=== PATIENT | female | born 1995 | race Caucasian/White ===

== ENCOUNTER 2023-07-24 12:44 | Outpatient (OUT) | payer OTHER, SELFPAY ==
--- NOTE | 2023-07-24 12:58 | US_ITS ---
[address] [address] Patient Name: MORAIMA DUNN MRN: [id number] date: 1995 Sex: F Assigned Patient Location: Current Patient Location: US Accession/Order Number: [id number] Exam Date: 07/24/2023 13:00 Report Date: 07/24/2023 13:48 At the request of: JUDIT REICH Procedure: US OB growth EXAMINATION: US OB growth HISTORY: Large For Dates P08.1 COMPARISON: No relevant comparison available. FINDINGS: Heart Rate: 131.1 bpm Amniotic Fluid Volume: 15.8 cm Number: 1.0 Position: Cephalic presentation, longitudinal lie Maximum Vertical Pocket: 3.6 cm cm 4.3 cm cm 2.8 cm cm 5.1 cm cm BIOMETRY: BPD: 8.9 cm cm; 36 weeks 0 days; 36% HC: 33.0 cmcm; 37 weeks 4 days , 35% AC: 32.4 cm cm; 36 weeks 2 days, 41% FL: 6.8 cm cm; 34 weeks 5 days; 4.6 % % EFW: 2832.5 grams, 6 lbs. 4 oz., 28% FL/AC: 20.8 FL/BPD: 75.8 HC/AC: 1.0 GESTATIONAL AGE: Age by EDC: 37 weeks 1 days CELSO by EDC: 08/13/2023 Age by US: 36 weeks 1 day CELSO by US: 08/20/2023 Possible nuchal cord. Suboptimal visualization of the head which is low in the maternal pelvis US/US OB growth IMPRESSION: Possible nuchal cord Femur length at the 5th percentile Otherwise normal interval growth Electronically authenticated by: AUTUMN STARK Date: 07/24/2023 13:48
== END 2023-07-24 12:45 | disposition home or self-care (01) ==
LOC: US 12:52
PROVIDERS: Visit Provider Midwife
DX: O26.843 Uterine size-date discrepancy, third trimester (principal); Z3A.36 36 weeks gestation of pregnancy
CPT/HCPCS: 76816

== ENCOUNTER 2023-08-06 19:15 | Inpatient (IN) | payer OTHER, SELFPAY ==
[2023-08-06] VITALS (12 sets, daily range): BP systolic 113–151; BP diastolic 56–89; PULSE 70–83; RESP 16–18; TEMP 36.6
--- OUTSIDE RECORDS SUMMARY | 2023-08-06 19:21 | XMS_ITS | CCD ---
Author Name Unknown Address [address] [place] [address] Organization [facility] Care Team Providers Care Specialized Developer Name Role Phone Hussain Olivas Primary Care Unavailable Hussain Olivas Attending Unavailable FLORO, JUDIT L Attending Unavailable FLORO, JUDIT L Attending Unavailable FLORO, JUDIT L Attending Unavailable FLORO, JUDIT L Attending Unavailable FLORO, JUDIT L Attending Unavailable FLORO, JUDIT L Referring Unavailable FLORO, JUDIT L Attending Unavailable FLORO, JUDIT L Referring Unavailable FLORO, JUDIT L Attending Unavailable Results Test Name Value Interpretation Reference Range Facil ity US OB FOLLOW UP TRANSABDOMIN AL APPROACHon 07-31-2023 US OB FOLLOW UP TRANSABDOMINAL APPROACH HISTORY: Growth assessment COMPARISON: 06/05/2023. TECHNIQUE: Sonography of the pelvis was performed by transabdominal technique. Images were obtained and stored in a permanent archive. RESULT: Gestation: Single present. Position: Cephalic Placenta: Location: Anterior Grade: 1 Previa: absent Cervix: Not well visualized. Cardiac activity: 143 bpm BPD: 9.4 cm HC: 33.8 cm AC: 34.1 cm FL: 6.9 cm Amniotic fluid: 16.6 cm, 70.5 percentile Estimated weight (EFW): 3238 g (7 pounds 2 ounces), 47.6 percentile Estimated gestational age: 37 weeks 4 days estimated gestational age by composite. Anatomy: No gross anomalies in the visualized anatomy. IMPRESSION: Single, live intrauterine with estimated 37 weeks 4 days gestational age. Appropriate interval growth. ELECTRONICALLY SIGNED BY: [place] V[place] MD Normal Not Available US OB FOLLOW UP TRANSABDOMIN AL APPROACHon 06-05-2023 US OB FOLLOW UP TRANSABDOMINAL APPROACH FINDINGS: Single live intrauterine . heart rate 149 bpm. somatic activity identified. Cephalic position. Grade 0 anterior placenta. CLARA 17.63 cm. Cervical length not measured. Estimated sonographic gestational age 29 weeks, 5 days. Gestational age by dates 30 weeks, 1 day. Sonographic estimated date of delivery August 16, 2023. Estimated weight 1482 g (30.9%, by LMP percentile). BPD 7.51 cm. HC 27.52 cm. FL 5.65 cm. AC 25.90 cm. IMPRESSION: Impression: Single live intrauterine , with estimated sonographic gestational age 29 weeks, 5 days. Estimated weight 1482 g. ELECTRONICALLY SIGNED BY: Vaughn Pham MD Normal Not Available Outside Recordson 01-02-2023 Outside Records [id number] [facility] [id number] 6#1.00[facility] Encounters Encounter Date Encounter Type Care Provider Facility Start: 07-31-2023 End: 08-01-2023 ambulatory JUDIT L FLORO Not Available Start: 07-24-2023 End: 07-25-2023 ambulatory JUDIT L FLORO Not Available Start: 07-17-2023 End: 07-18-2023 ambulatory JUDIT L FLORO Not Available Start: 07-10-2023 End: 07-10-2023 ambulatory JUDIT L FLORO Not Available Start: 07-03-2023 End: 07-04-2023 ambulatory JUDIT L FLORO Not Available Start: 06-19-2023 End: 06-20-2023 ambulatory JUDIT L FLORO Not Available Start: 06-05-2023 End: 06-06-2023 ambulatory JUDIT L FLORO Not Available Start: 01-02-2023 End: 01-03-2023 ambulatory Hussain Olivas Facility:[facility] Payers Date Payer Category Payer Unknown [id number] 2023 Self-pay 2022 Unknown [id number] 1995 Unknown [id number] 2.16.8 [id number] 1995 Unknown [id number] 2.16.84 [id number] 1995 Unknown [id number] 2.16.84 [id number] 1995 Unknown [id number] 2.16.84 [id number] 1996 Unknown [id number] 2.16.84 [id number] 1996 Unknown [id number] 2.16.840 .[id number] 1996 Unknown [id number] 2.16.840 .[id number] 1996 Unknown [id number] 2.16.840 .[id number] 1996 Unknown [id number] 2.16.840 .[id number] 1996 Unknown [id number] [id number] .[id number] Summary Purpose Family History No Family History Records FoundNo Family History Records Found Advance Directives No Advanced Directives Records FoundNo Advanced Directives Records Found Additional Source Comments INFORMATION SOURCE (unrecogn ized section and content) DATE CREATED AUTHOR 01/03/2023 [facility] DATE CREATED AUTHOR AUTHOR'S MELLY ATMEIR 08/04/2023 [facility] dical Specialists [facility] FOR RECORDS PERTAINING TO PATIENTS WHO ARE OR HAVE BEEN ENROLLED IN A CHEMICAL DEPENDENCY/SUBSTANCEABUSE PROGRAM, SOME INFORMATION MAY BE OMITTED. This clinical summary was aggregated from multiple sources. Caution should be exercised in using it in the provision of clinical care. This summary normalizes information from multiple sources, and as a consequence, information in this document may materially change the coding, format and clinical context of patient data. In addition, data may be omitted in some cases. CLINICAL DECISIONS SHOULD BE BASED ON THE PRIMARY CLINICAL RECORDS. [facility]. provides no warranty or guarantee of the accuracy or completeness of information in this document.
[2023-08-06 20:44] LABS: Hematocrit 35.2 % (36.0-48.0); Hemoglobin 11.7 g/dL (12.0-16.0); Mean Corpuscular HGB Conc 33.2 g/dL (29.9-35.2); Mean Corpuscular Volume 93.4 fL (81.0-99.0); Mean Platelet Volume 11.1 fL (9.5-13.5); Platelet Count 285 10^3/uL (150-450); Red Blood Count 3.77 10^6/uL (4.20-5.40); Red Cell Distribution Width 13.3 % (11.0-15.0)
[2023-08-06] MEDS: DINOPROSTONE 10 MG VAG INSERT.ER VAGINAL (20:47)
[2023-08-06 20:51] LABS: Amphetamine Screen Urine NEGATIVE (NEGATIVE); Barbiturates Screen Urine NEGATIVE (NEGATIVE); Benzodiazepines Screen Urine NEGATIVE (NEGATIVE); Buprenorphine Screen Urine NEGATIVE (NEGATIVE); Cannabinoid Screen Urine NEGATIVE (NEGATIVE); Cocaine Screen Urine NEGATIVE (NEGATIVE); Methadone Screen Urine NEGATIVE (NEGATIVE); Methamphetamines Screen Urine NEGATIVE (NEGATIVE); Opiate Screen Urine NEGATIVE (NEGATIVE); Oxycodone Screen Urine NEGATIVE (NEGATIVE); Phencyclidine Screen Urine NEGATIVE (NEGATIVE); Tricyclic Antidepressant Urine NEGATIVE (NEGATIVE)
[2023-08-07] VITALS (70 sets, daily range): BP systolic 93–185; BP diastolic 51–114; PULSE 61–100; RESP 16; TEMP 36.4–37.1
[2023-08-07] MEDS: LACTATED RINGER'S SOLUTION 1,000 ML 125 ML IV ×2 (07:25→09:21)
[2023-08-07] MEDS: CEFAZOLIN SODIUM/DEXTROSE,ISO 1 GM/50 ML IV.SOLN IV ×2 (07:26→11:13)
--- NOTE | 2023-08-07 08:24 | P.OBHP_ITS ---
OB - H&P: HPI History of Present Illness Chief complaint: Induction : 2 Para: 1 Gestational age based on last menstrual period: 39.1 Indications for induction: other (elective ) History of Present Dating criteria: LMP confirmed by 1st trimester US care: good care Ultrasounds: normal 1st trimester US and normal mid trimester US Medical complications OB: none Labs Blood type: A (+) positive RPR/VDLR: nonreactive GBS status: positive HBsAG: negative Review of Systems ROS Status of ROS: 10 or more systems reviewed and unremarkable except as noted in history and below PFSH PFS Surgical History (Updated 08/06/23 @ 21:32 by Yesi Sprague) [place] teeth removed ?K08.409 - Partial loss of teeth, unspecified cause, unspecified class (ICD- 10) Social History Highest level of school completed/degree received: high school graduate Meds Home Medications and Allergies Home Medications Medication Instructions Recorded Confirmed Type Ritual prental PO 08/06/23 History Allergies Allergy/AdvReac Type Severity Reaction Status Date / Time No Known Drug Allergies Allergy Verified 08/06/23 20:46 Exam Constitutional Vital Signs, click to edit/add: Last Vital Signs Temp 97.6 F 08/07/23 03:13 Pulse 87 08/07/23 08:13 Resp 16 08/07/23 04:43 BP 173/91 H 08/07/23 08:13 O2 Del Method Room Air 08/06/23 20:57 Documenting provider has reviewed patient's vital signs: yes Common normals: no apparent distress and oriented x3 General appearance: cooperative, comfortable, well kempt and well developed Nutritional appearance: obese Orientation/consciousness: Yes awake, Yes oriented to place and Yes oriented to time HENMT Common normals: normocephalic Eye Common normals: EOMs intact bilaterally Neck & C-Spine Common normals: full ROM and no lymphadenopathy Lymph Lymphatic: no lymphadenopathy noted Chest Common normals: inspection of chest normal Respiratory Common normals: normal respiratory effort Effort & inspection: able to speak in complete sentences Cardio Common normals: regular rate and regular rhythm Rate: regular rate Rhythm: regular rhythm GI Common normals: Normal to inspection, nondistended, normoactive bowel sounds present, soft to palpation and non-tender Auscultation: normoactive bowel sounds Palpation: soft Common normals: no CVA tenderness Back & Pelvis Common normals: no CVA tenderness Extremity Common normals: normal to inspection Neuro Common normals: oriented x3 Sensorium/orientation: awake, alert, oriented to person, oriented to place and oriented to time Psych Common normals: mental status grossly normal, thought process normal and cooperative Results Labs Labs: Short CBC 08/06/23 Range/Units 20:18 WBC 13.0 H (4.0-11.0) 10^3/uL Hgb 11.7 L (12.0-16.0) g/dL Hct 35.2 L (36.0-48.0) % Plt Count 285 (150-450) 10^3/uL OB - A/P Assessment and Plan (1) Term : Plan elective induction of labor admit and follow routine orders
[2023-08-07] MEDS: ROPIVACAINE HCL/PF 400 MG/200 ML PREMIX 6 MG EPIDURAL (09:19)
[2023-08-07] MEDS: LIDOCAINE HCL 2% PF 100 MG/5 ML VIAL INJ (09:20)
[2023-08-07] MEDS: FENTANYL CITRATE/PF 100 MCG/2 ML VIAL EPIDURAL (09:20)
--- NOTE | 2023-08-07 12:04 | P.EN_ITS ---
Event Note Event Note: To patients room for assessment. 2nd dose of antibiotic done infusing at this time. SVE 6-7/70/-2. AROM performed with sterile amni hook with return of small amount of fluid, clear, odorless. heart tones stble before, during and after rupture of membranes. Patient tolerated procedure well, patient is ve ry comfortable with epidural.
[2023-08-07] MEDS: OXYTOCIN/0.9 % SODIUM CHLORIDE 20 UNITS/1,000 ML PLAST..BAG 125 UNIT IV (13:30)
--- NOTE | 2023-08-07 13:48 | PM.OBPRCVD ---
Procedure Procedure: events: Labor Induction Intrapartal events: None Induction method: other (cervidil -cervical ripening ) Delivery monitor: external FHT and external uterine Route of delivery: Episiotomy Description: none Laceration description: superficial (1st degree periurethral and 1st degree perineum ) Delivery repair: Vicryl Estimated blood loss (mL): 150 Anesthesia type: Epidural Disposition: no change Delivery date: 08/07/23 Gender: female presentation: vertex Placental delivery description: Spontaneous cord description: 3 Vessels, Loose and Around Body x1 heart rate - 1 minute: 100 bpm or Greater respiratory effort - 1 minute: Spontaneous/Strong Cry muscle tone - 1 minute: Active Movement reflex response - 1 minute: Minimal Response color - 1 minute: Bluish Hands or Feet total score - 1 minute: 8 heart rate - 5 minute: 100 bpm or Greater respiratory effort - 5 minute: Spontaneous/Strong Cry muscle tone - 5 minute: Active Movement reflex response - 5 minute: Minimal Response color - 5 minute: Bluish Hands or Feet total score - 5 minute: 8
[2023-08-07] MEDS: GLYCERIN/WITCH HAZEL PADS 1 PAD TOPICAL (14:28)
[2023-08-07] MEDS: IBUPROFEN 400 MG TABLET 800 MG PO ×2 (14:28→22:12)
[2023-08-07] MEDS: BENZOCAINE/MENTHOL 85 GRAM SPRAY BOTTLE 1 APPLIC TOPICAL (14:29)
[2023-08-08] MEDS: IBUPROFEN 400 MG TABLET 800 MG PO ×2 (06:48→14:43)
--- NOTE | 2023-08-08 07:16 | P.OBHP_ITS ---
OB - H&P: HPI History of Present Illness Chief complaint: Induction : 2 Para: 1 Gestational age based on last menstrual period: 39.1 History of Present Dating criteria: LMP confirmed by 1st trimester US care: good care Ultrasounds: normal 1st trimester US and normal mid trimester US complications: gestational diabetes complications comment: good diet control Medical complications OB: none Labs Blood type: A (-) negative Rubella: immune RPR/VDLR: nonreactive GBS status: negative HBsAG: negative Review of Systems ROS Status of ROS: 10 or more systems reviewed and unremarkable except as noted in history and below [facility] Surgical History (Updated 08/06/23 @ 21:32 by Yesi Sprague) [place] teeth removed ?K08.409 - Partial loss of teeth, unspecified cause, unspecified class (ICD- 10) Social History Highest level of school completed/degree received: high school graduate Meds Home Medications and Allergies Home Medications Medication Instructions Recorded Confirmed Type Ritual prental PO 08/06/23 History Allergies Allergy/AdvReac Type Severity Reaction Status Date / Time No Known Drug Allergies Allergy Verified 08/06/23 20:46 Exam Constitutional Vital Signs, click to edit/add: Last Vital Signs Temp 98.0 F 08/07/23 22:30 Pulse 85 08/07/23 22:30 Resp 16 08/07/23 22:30 BP 134/79 08/07/23 22:30 O2 Del Method Room Air 08/07/23 22:30 Common normals: no apparent distress HENMT Common normals: normocephalic Eye Common normals: EOMs intact bilaterally Neck & C-Spine Common normals: full ROM Lymph Lymphatic: no lymphadenopathy noted Chest Common normals: inspection of chest normal Respiratory Common normals: normal respiratory effort and no retractions Cardio Common normals: regular rate Rate: regular rate Rhythm: regular rhythm GI Common normals: Normal to inspection, nondistended, normoactive bowel sounds present Auscultation: normoactive bowel sounds Common normals: no CVA tenderness Back & Pelvis Common normals: no CVA tenderness Extremity Common normals: normal to inspection and full ROM Neuro Kera Coma Scale: document GCS findings Common normals: oriented x3 Sensorium/orientation: awake, alert, oriented to person, oriented to place and oriented to time Psych Psychiatry clinicians, please identify where your Mental Status Exam is documented: Mental Status Exam documented in the separate MSE OB - A/P Assessment and Plan (1) Term :
--- NOTE | 2023-08-08 07:49 | PM.OBPN ---
OB - PN: Subj Subjective Patient comments: no complaints and pain well controlled Dunne[place] status: doing well Exam Constitutional Vital Signs, click to edit/add: Last Vital Signs Temp 98.0 F 08/07/23 22:30 Pulse 85 08/07/23 22:30 Resp 16 08/07/23 22:30 BP 134/79 08/07/23 22:30 O2 Del Method Room Air 08/07/23 22:30 Documenting provider has reviewed patient's vital signs: yes Common normals: no apparent distress Respiratory Common normals: normal respiratory effort and clear to auscultation bilaterally Cardio Common normals: regular rate and regular rhythm GI Common normals: Normal to inspection, nondistended, normoactive bowel sounds present Extremity Common normals: no calf tenderness OB - PN: A/P Assessment and Plan (1) Term : Plan - Vaginal Delivery day: 1 Plan: routine care, discharge home and other (2weeks) Time Spent with Patient Time: Total time spent is greater than 50% in coordination of care (as documented) at patient's floor/unit and/or counseling patient: Total time spent with greater than 50% in coordination of care (as documented) at patient's floor/unit and/or counseling patient: less than 15 minutes
[2023-08-08 07:52] VITALS: BP 116/70; PULSE 83
[2023-08-08 07:55] VITALS: RESP 16; TEMP 36.7
--- NOTE | 2023-08-08 09:01 | PM.EN ---
Event Note Event Note: Splicing Supervisor Note: I first assisted Dr Jordan with repeat section. I assisted physician as directed. I independently closed the SQ layer with 3-0 vicryl without difficulty. I then closed the incision with a 4-0 vicryl on a Goran needle without difficulty. Hemostasis was noted with closure.
== END 2023-08-08 16:30 | disposition home or self-care (01) | DRG 807 ==
PROVIDERS: Admitting Provider Midwife; Visit Provider Midwife
DX: O99.824 Streptococcus B carrier state complicating childbirth (principal); Z37.0 Single live birth; Z3A.39 39 weeks gestation of pregnancy; O70.0 First degree perineal laceration during delivery; Z87.891 Personal history of nicotine dependence
CPT/HCPCS: 36415; 51702; 59050; 59410; 80307; 85027; 86850; 86900; 86901; 96365; 96366; 96367; 96376; J0690; J2590; J2795; J3010